=== PATIENT | female | born 1990 | race Caucasian/White ===

== ENCOUNTER 2017-06-10 01:26 | Emergency (ER) | payer MEDICARE, OTHER ==
[~2017-06-10] VITALS: Ht 154.9 cm; Wt 105.0 kg
[~2017-06-10 01:26] MED LIST: AMOX500T PO; MMW SS
[2017-06-10 01:34] VITALS: BP 146/79; PULSE 117; RESP 16; TEMP 100.5; O2SAT 95
[2017-06-10] MEDS ORDERED: METF500T PO (01:44)
[2017-06-10] MEDS ORDERED: TRAD5TAB PO (01:44)
[2017-06-10] MEDS ORDERED: BACT800T5 PO (02:31)
--- NOTE | 2017-06-10 02:32 | PD ---
HPI Chief Complaint: Bite or Sting Time Seen by Provider: 02:25 Travel History International Travel<30 days: No Contact w/Intl Traveler<30days: No Traveled to known affect area: No History of Present Illness HPI The patient is a 26-year-old female that has painful swelling from a abscess on her back for 4 days. Her last tetanus shot was within 5 years. She is diabetic and takes metformin for this. She does not have a primary care physician. PFSH Past Medical History Diabetes: Yes Patient Takes Glucophage: Yes Tetanus Vaccination: < 5 Years Influenza Vaccination: Yes ?: Not LMP: 05-12-17 Past Surgical History Other Surgery: Yes (x2 left foot) Social History Alcohol Use: No Tobacco Use: No Substance Use: No Allergies-Medications (Allergen,Severity, Reaction): Coded Allergies: No Known Allergies (Unverified , 06/10/17) Reported Meds & Prescriptions Reported Meds & Active Scripts Active Reported Tradjenta (Linagliptin) 5 Mg Tab 5 Mg PO DAILY Metformin (Metformin HCl) 500 Mg Tab 500 Mg PO DAILY With a meal Review of Systems Except as stated in HPI: all other systems reviewed are Neg Physical Exam Narrative GENERAL: Well-nourished, alert and oriented, obese patient in slight apparent distress with her abscess on her back. Her vital signs show blood pressure 146/ 79 with heart rate of 117 and temperature 100.5 but are otherwise normal. SKIN: Focused skin assessment warm/dry. There is a small abscess, superficial with 3 cm diameter cellulitic area surrounding. HEAD: Normocephalic. EYES: No scleral icterus. No injection or drainage. NECK: Supple, trachea midline. No JVD or lymphadenopathy. CARDIOVASCULAR: Regular rate and rhythm without murmurs, gallops, or rubs. RESPIRATORY: Breath sounds equal bilaterally. No accessory muscle use. GASTROINTESTINAL: Abdomen soft, non-tender, nondistended. MUSCULOSKELETAL: No cyanosis, or edema. BACK: Nontender without obvious deformity. No CVA tenderness. Data Data Last Documented VS Vital Signs Date Time Temp Pulse Resp B/P (MAP) Pulse Ox O2 Delivery O2 Flow Rate FiO2 06/10/17 01:34 100.5 117 16 146/79 (101) 95 MDM Medical Decision Making Medical Screen Exam Complete: Yes Emergency Medical Condition: Yes Medical Record Reviewed: Yes Differential Diagnosis Abscess, cellulitis, insect bite Narrative Course The patient has a small abscess which is superficial and cellulitis. This does not appear as an insect bite. Procedures Procedure Narrative The superficial abscess was unroofed with a #11 blade. This did not cause any pain for the patient. The patient did not require any lidocaine a local anesthetic. The wound was irrigated with peroxide and bandaged. The patient tolerated procedure well. Diagnosis Primary Impression: Encounter for incision and drainage procedure Additional Impression: Abscess of back Additional Instructions: As we discussed, warm compresses for 30 minutes twice daily followed by anabolic ointment and a Band-Aid. The antibiotic is taken twice daily for 10 days. The antibiotic is free at [facility]. Follow-up with a primary care physician, hopefully this week. Med/Other Pt SpecificInfo: Prescription(s) given Scripts Sulfamethoxazole-Trimethoprim (Bactrim DS) 800-160 Mg Tab 1 TAB PO BID for Infection, #20 TAB 0 Refills Prov: Reese Jasso MD 06/10/17 Disposition: 01 DISCHARGE HOME Condition: Stable Reese Jasso MD Jun 10, 2017 02:32
[2017-06-10 02:38] VITALS: PULSE 119; RESP 18; TEMP 99.7; O2SAT 96
[2017-06-10] MEDS ORDERED: SULFAMETHOXAZOLE-TRIMETHOPRIM DS 800-160 MG TAB PO ONE (02:45)
[2017-06-10] MEDS ORDERED: IBUPROFEN 800 MG TAB PO ONE (02:45)
[2017-06-10] MEDS ORDERED: IBUP-232 PO (02:50)
== END 2017-06-10 03:02 | disposition home or self-care (01) ==
LOC: PHED 01:26
DX: L02.212 Cutaneous abscess of back [any part, except buttock and flank] (principal); B95.61 Methicillin susceptible Staphylococcus aureus infection as the cause of diseases classified elsewhere; E11.9 Type 2 diabetes mellitus without complications; Z79.84 Long term (current) use of oral hypoglycemic drugs
CPT/HCPCS: 10060; 86403; 87070; 87186